=== PATIENT | female | born 1975 | race Caucasian/White ===

== ENCOUNTER 2018-01-09 10:08 | Inpatient (IN) | payer MEDICAID ==
[~2018-01-09] VITALS: Ht 162.6 cm; Wt 136.1 kg
[2018-01-09] MEDS ORDERED: ATOR10TA PO (10:12)
[2018-01-09] MEDS ORDERED: GLIP5TAB12 PO (10:12)
[2018-01-09] MEDS ORDERED: METF500T4 PO (10:12)
[2018-01-09 11:24] LABS: BASOPHILS % 1.4 % (0.0-2.0); EOSINOPHILS % 4.6 % (0.0-5.0); HEMATOCRIT. 41.3 % (36.0-48.0); HEMOGLOBIN. 14.4 g/dL (12.0-16.0); LYMPHOCYTES % 35.8 % (20.0-50.0); MEAN CORPUSCULAR HEMOGLOBIN 28.3 pg (28.0-32.0); MEAN CORPUSCULAR VOLUME 81.1 fL (81.0-99.0); MEAN PLATELET VOLUME 10.6 fl (7.4-10.4); MONOCYTES % 5.2 % (2.0-8.0); PLATELET 201 x1000/uL (130-400); RED CELL DISTRIBUTION WIDTH 14.2 % (11.6-14.6)
[2018-01-09 11:30] LABS: CHLORIDE 101 mEq/L (98-107)
[2018-01-09 11:32] LABS: INR 1.2; PROTHROMBIN TIME 12.7 sec (9.4-11.6)
[2018-01-09] MEDS ORDERED: DEXTROSE 50% WATER 50ML SYRINGE IV PRN (14:00)
[2018-01-09 14:41] LABS: LDL CHOLESTEROL 163 mg/dL (5-100)
[2018-01-09 14:42] LABS: HDL CHOLESTEROL 41 mg/dL (40-59)
[2018-01-09 14:43] LABS: CREATINE KINASE 128 IU/L (26-192)
[2018-01-09 14:44] LABS: CREATINE KINASE MB FRACTION < 0.5 ng/mL (0.5-3.6)
[2018-01-09] MEDS ORDERED: LOSARTAN POTASSIUM 25 MG TABLET PO SCH (15:00)
[2018-01-09] MEDS ORDERED: GLIP2.5T3 PO (15:05)
[2018-01-09] MEDS ORDERED: LEVO75TA7 PO (15:05)
[2018-01-09] MEDS ORDERED: LISI-604 PO (15:05)
[2018-01-09] MEDS ORDERED: METF10002 PO (15:05)
[2018-01-09] MEDS ORDERED: CYCL5TAB PO (15:05)
[2018-01-09] MEDS ORDERED: NAPR-681 PO (15:05)
[2018-01-09] MEDS ORDERED: ATOR20TA PO (15:05)
[2018-01-09] MEDS ORDERED: CHOL500010 PO (15:05)
[2018-01-09] MEDS ORDERED: FISH1CAP2 PO (15:05)
[2018-01-09 15:57] VITALS: BP 151/96
[2018-01-09 16:00] VITALS: BP 141/85
[2018-01-09] MEDS: LISINOPRIL 20MG TABLET PO SCH ×2 (16:34→21:16)
[2018-01-09] MEDS: BLOOD SUGAR DIAGNOSTIC STRIP TEST SCH ×2 (16:34→21:16)
[2018-01-09] MEDS: INSULIN LISPRO 100 UNITS/ML SUBCUT SCH ×2 (19:02→21:17)
[2018-01-09 20:00] VITALS: BP 132/75
[2018-01-09] MEDS ORDERED: ATORVASTATIN CALCIUM 10MG TABLET PO SCH ×2 (21:00)
[2018-01-09] MEDS ORDERED: ATORVASTATIN CALCIUM 20MG TABLET PO SCH (21:00)
[2018-01-09] MEDS: AMLODIPINE 5MG TABLET PO SCH (21:16)
[2018-01-09] MEDS: INSULIN GLARGINE UD 100 UNITS/ML SYR SUBCUT SCH (22:03)
[2018-01-10 00:12] VITALS: BP 112/67
[2018-01-10 04:00] VITALS: BP 108/60
[2018-01-10 05:19] LABS: *AMPHETAMINES SCREEN URINE NEGATIVE (NEGATIVE); *BARBITURATES SCREEN URINE NEGATIVE (NEGATIVE); *BENZODIAZEPINES SCREEN URINE NEGATIVE (NEGATIVE); *COCAINE SCREEN URINE NEGATIVE (NEGATIVE); METHADONE URINE SCREEN NEGATIVE (NEGATIVE); OPIATES URINE SCREEN NEGATIVE (NEGATIVE)
[2018-01-10 05:20] LABS: CANNABINOID URINE SCREEN NEGATIVE (NEGATIVE); PHENCYCLIDINE URINE SCREEN NEGATIVE (NEGATIVE)
[2018-01-10 06:08] LABS: BASOPHILS % 1.1 % (0.0-2.0); EOSINOPHILS % 5.5 % (0.0-5.0); HEMATOCRIT. 38.7 % (36.0-48.0); HEMOGLOBIN. 13.5 g/dL (12.0-16.0); LYMPHOCYTES % 40.8 % (20.0-50.0); MEAN CORPUSCULAR VOLUME 79.9 fL (81.0-99.0); MEAN PLATELET VOLUME 10.8 fl (7.4-10.4); MONOCYTES % 6.4 % (2.0-8.0); NEUTROPHILS % 46.2 % (40.0-76.0); PLATELET 215 x1000/uL (130-400); RED BLOOD CELL COUNT 4.84 mill/uL (4.2-5.4); RED CELL DISTRIBUTION WIDTH 14.6 % (11.6-14.6)
[2018-01-10] MEDS: BLOOD SUGAR DIAGNOSTIC STRIP TEST SCH ×2 (06:20→12:40)
[2018-01-10 06:35] LABS: CHLORIDE 101 mEq/L (98-107)
[2018-01-10] MEDS ORDERED: REGADENOSON 0.4 MG/5 ML IV ONE ×2 (07:30→11:25)
[2018-01-10 08:00] VITALS: BP 109/66
[2018-01-10] MEDS: INSULIN LISPRO 100 UNITS/ML SUBCUT SCH ×2 (08:10→13:41)
[2018-01-10] MEDS: AMLODIPINE 5MG TABLET PO SCH (09:00)
[2018-01-10] MEDS: LISINOPRIL 20MG TABLET PO SCH (09:00)
[2018-01-10] MEDS: INSULIN GLARGINE UD 100 UNITS/ML SYR SUBCUT SCH (10:00)
[2018-01-10 12:30] VITALS: BP 111/75
[2018-01-10] MEDS ORDERED: ACETAMINOPHEN 325MG TABLET PO SCH (13:30)
== END 2018-01-10 15:30 | disposition home or self-care (01) | DRG 203 ==
LOC: ER 10:08 → 7WST 13:28 → ENRESERV 13:45
PROVIDERS: ADMIT Internal Medicine; ATTEND Internal Medicine
DX: R07.89 Other chest pain (principal); E11.65 Type 2 diabetes mellitus with hyperglycemia; I10 Essential (primary) hypertension; E03.9 Hypothyroidism, unspecified; E78.5 Hyperlipidemia, unspecified; E66.09 Other obesity due to excess calories; E78.00 Pure hypercholesterolemia, unspecified; R74.0 Nonspecific elevation of levels of transaminase and lactic acid dehydrogenase [LDH]; Z79.84 Long term (current) use of oral hypoglycemic drugs; Z82.49 Family history of ischemic heart disease and other diseases of the circulatory system; Z83.3 Family history of diabetes mellitus; Z87.891 Personal history of nicotine dependence; Z79.899 Other long term (current) drug therapy; Z71.3 Dietary counseling and surveillance; Z68.43 Body mass index [BMI] 50.0-59.9, adult
CPT/HCPCS: 36415; 71045; 76700; 78452; 80048; 80053; 80061; 80305; 82550; 82553; 82962; 83036; 83735; 83880; 84443; 84484; 85025; 85610; 93005; 93017; 93306; 99285; A9558; J1815; J2785